=== PATIENT | female | born 1975 | race Caucasian/White ===

== ENCOUNTER 2018-08-02 09:59 | Emergency (ER) | payer BC, SELFPAY ==
[2018-08-02 10:02] VITALS: BP 144/77; PULSE 78; RESP 16; TEMP 36.3; O2SAT 96
--- NOTE | 2018-08-02 10:17 | DI.RAD_ITS ---
SYMPTOM/DIAGNOSIS: LEFT FEMUR: There is no evidence of a fracture or dislocation. LEFT KNEE: There is no evidence of a fracture or dislocation or joint effusion. LEFT TIB-FIB: There is no evidence of a fracture or dislocation.
[2018-08-02] MEDS: Ibuprofen 600 MG TAB PO (10:25)
--- NOTE | 2018-08-02 11:24 | ED.GENADUL_ITS ---
Discharge Plan Disposition Patient Disposition: HOME Condition: Stable Discharge Details Chief Complaint: Orthopedic Clinical Impression: Contusion of knee, left, Abrasion, Contusion of hand, right Primary Care Provider: Jorge Rizvi ED Provider: Patria Steinberg Home Meds and New Rx's Prescriptions: Continue citalopram [Celexa] 20 MG tablet 40 mg PO HS RF: 0 montelukast [Singulair] 10 MG tablet 10 mg PO HS RF: 0 epinephrine [EpiPen 2-Serafin] 0.3 MG/0.3 ML auto-injector 0.3 mg IM ONCE RF: 0 fluticasone [Flonase Allergy Relief] 9.9 ML spray,suspension 9.9 ml NS PRN PRNRF: 0 pantoprazole [Protonix] 40 MG tablet,delayed release (DR/EC) 40 mg PO BID RF: 0 fexofenadine [Ruth Allergy] 180 mg Tablet 180 mg PO HS RF: 0 Discharge Instructions Instructions: Contusion in Adults (ED), Abrasion (ED) Additional Instructions: Rest, ice, elevate left lower extremity is much as possible. Alternate Tylenol and Motrin as needed and directed for pain. Follow-up with your primary care doctor in 1 week for reevaluation as needed. Return to the emergency department any worsening or new concerning symptoms. Discharge Data Discharge Date/Time-TO BE ENTERED AT DEPARTURE: 08/02/18 11:34 Discharge Physician: Patria Steinberg Medical Decision Making 43-year-old female who presents with left knee pain after fall directly onto her knee while walking in dry [employer] this morning. Also fell onto her right hand but denies pain in this area and there is no deformity. Blood pressure slightly hypertensive but otherwise vitals within normal limits. Superficial left knee abrasion and tenderness to palpation of left anterior knee and left proximal tibia but no deformity noted. I do not see an indication for right hand x-ray patient was offered and she declines. She is complaining of radiation of pain from left knee up to left thigh left lower leg , will obtain left femur, left knee and left tib-fib x-rays. Will also check a urine test and give a dose of Motrin. 1115 -- X-rays negative. test negative. Patient offered Srinivasa wrap but declines. Patient instructed on rest, ice, elevate. As there is no history of twisting injury and no ligamentous instability on exam, doubt ligament injury. Patient was informed of symptoms persist or worsen, follow-up with a primary care doctor for referral to orthopedics for further evaluation. Instructed to return here with any concerns. HPI General Mode of arrival: ambulatory . Date/Time Provider Initiated Documentation: 08/02/18 10:08 . Limitations to Documentation: no limitations . Information obtained by: patient . HPI Narrative: Patient is a 43-year-old female presents with left knee pain after fall directly onto her left knee while walking at a [employer] this morning. Patient states she tripped on the step and fell directly onto the cement on her left knee. She is complaining of some radiation of pain up to the thigh and down to the lower leg. She has not taken anything for pain. She also states she hit her right hand but denies any pain in this area. She denies any other injuries. Past medical history: Anxiety, depression, GERD, obesity, PCOS Surgical history: Cholecystectomy, breast reduction Social history: Occasional alcohol, denies tobacco or drugs Medications: Celexa, Ruth, Singulair, Protonix Allergies: NKDA LMP: 5 weeks ago Related Data Home Medications Medication Instructions Recorded Confirmed citalopram [Celexa] 40 mg PO HS tab-cap NS 12/01/14 08/02/18 epinephrine [EpiPen 2-Serafin] 0.3 mg IM ONCE NS 12/01/14 08/02/18 fluticasone [Flonase Allergy 9.9 ml NS PRN PRN NS 12/01/14 08/02/18 Relief] montelukast [Singulair] 10 mg PO HS tab-cap NS 12/01/14 08/02/18 pantoprazole [Protonix] 40 mg PO BID tab-cap 08/18/17 08/02/18 fexofenadine [Ruth Allergy] 180 mg PO HS 08/02/18 08/02/18 Allergies Allergy/AdvReac Type Severity Reaction Status Date / Time birch Allergy Severe Birch Unverified 08/02/18 10:05 pollen/ raw fruit nectarines, General Stated Complaint: Orthopedic LISSA: 4 Review of Systems Review of Systems All systems reviewed & are unremarkable except as noted in HPI and below PFSH Medical History Anxiety and depression Breast lump or mass Cholelithiasis Fibrocystic breast GERD (gastroesophageal reflux disease) Hx gestational diabetes Obesity (BMI 30-39.9) PCOS Polycystic ovary syndrome Social History Smoking/Tobacco Use Status: Never Surgical History EGD - MAC (09/14/17) Exam Const General: cooperative, healthy appearing and no acute distress HENMT Head: normal to inspection Mouth: oral mucosae normal Eyes General: appearance normal, both eyes and all related structures Neck Neck: normal visual inspection Resp Effort & Inspection: normal respiratory effort and able to speak in complete sentences Cardio Rate: regular rate Skin General skin exam: no rashes or lesions noted Neuro General: alert, awake and oriented x3 Motor: muscle tone normal throughout Extrem Right upper extremity: wrist (No right snuffbox tenderness) and hand (Minimal tenderness to palpation and mild edema of right palmar hand near the thenar eminence. No deformity.) Left lower extremity: hip/thigh (Tenderness to palpation of left distal anterior thigh. No ecchymosis, edema or erythema. Normal to inspection and no tenderness to palpation of left hip. No pain in left hip with range of motion, internal or external rotation), knee (Superficial abrasion and tenderness to palpation of left anterior knee. No deformity noted. Negative anterior and posterior drawer test. No pain with valgus or varus stress. Negative Yusuf test. ), lower leg (Tenderness palpation and superficial abrasion noted to left anterior proximal tibia near tibial plateau. No deformity noted.), ankle (No tenderness palpation or deformity) and foot (No tenderness to palpation or deformity. Left DP/PT pulses intact) Psych Appearance: grossly normal Affect: normal affect Course Vital Signs Temperature 97.3 F L 08/02/18 10:02 Pulse 78 08/02/18 10:02 Respiratory Rate 16 08/02/18 10:02 Blood Pressure 144/77 H 08/02/18 10:02 Pulse Oximetry 96 08/02/18 10:02 Temperature 97.3 F L 08/02/18 10:02 Temperature Source Temporal Artery Scan 08/02/18 10:02 Pulse 78 08/02/18 10:02 Respiratory Rate 16 08/02/18 10:02 Respiratory Effort Non-Labored 08/02/18 10:04 Blood Pressure 144/77 H 08/02/18 10:02 Blood Pressure Position Sitting 08/02/18 10:02 Pulse Oximetry 96 08/02/18 10:02 Oxygen Delivery Method Room Air 08/02/18 10:02 Oxygen Flow Rate 0 08/02/18 10:02 Pain Level 8 08/02/18 10:25 Lab/Test Results Lab/Test Results: POC- Test(urine) Negative
== END 2018-08-02 11:34 | disposition home or self-care (01) ==
PROVIDERS: Emergency Provider Physician Assistant; PCP Physician Assistant Medical
DX: S80.02XA Contusion of left knee, initial encounter (principal); S60.221A Contusion of right hand, initial encounter; W01.0XXA Fall on same level from slipping, tripping and stumbling without subsequent striking against object, initial encounter
CPT/HCPCS: 73552; 73562; 99284; 73590

== ENCOUNTER 2018-09-20 01:18 | Outpatient (CLI) | payer BC, SELFPAY ==
--- NOTE | 2018-09-20 15:41 | DI.MRI_ITS ---
SYMPTOM/DIAGNOSIS: LEFT KNEE PAIN M25.562, ? LMENISCAL AND LEG INJURY MR LEFT KNEE: There is no evidence of a joint effusion. The extensor mechanism of the knee is intact. There is moderate chondromalacia along the medial joint compartment with mild periarticular osteophyte formation. The medial meniscus is unremarkable. The lateral meniscus is unremarkable. Medial capsule and supporting structures are unremarkable. The lateral capsule and supporting structures are unremarkable. The anterior cruciate ligament is intact. The posterior cruciate ligament is intact. No abnormality involving the musculature is apparent. Note is made of a minimal Newsome's cyst. There is moderate subcutaneous edema anteriorly without a discrete collection. SUMMARY: Mild medial degenerative changes are demonstrated as described above. There is a minimal Newsome's lcyst. Moderate anterior subcutaneous edema is noted without a discrete collection. There is no significant internal derangement demonstrated in this patient.
--- NOTE | 2018-09-20 16:32 | DI.VRAD_ITS ---
EXAM: MR Left Lower Extremity Without Contrast, Knee EXAM DATE/TIME: 09/20/2018 3:37 PM CLINICAL HISTORY: 43 years old, female; Pain; Knee; Left; Patient HX: Lt knee pain, ? meniscal and leg TECHNIQUE: MR of the Left Lower extremity without intravenous contrast. Exam focused on the knee. COMPARISON: CR XR knee LT 3V AP,lat,tab 08/02/2018 10:38 AM FINDINGS: BONES/JOINTS/CARTILAGE: Patellofemoral compartment: Joint fluid is within physiologic limits. Femorotibial compartments: There is moderate chondromalacia along the medial compartment, with very mild periarticular osteophyte formation. Extensor mechanism: Unremarkable. No evidence of tear. Medial meniscus: Unremarkable. No evidence of tear. Lateral meniscus: Unremarkable. No evidence of tear. Medial capsule/supporting structures: Unremarkable. No evidence of tear. Lateral capsule/supporting structures: Unremarkable. No evidence of tear. Anterior cruciate ligament: Unremarkable. No evidence of tear. Posterior cruciate ligament: Unremarkable. No evidence of tear. Musculature: Unremarkable. Soft tissues: There is a minimal Newsome's cyst. There is moderate subcutaneous edema anteriorly without discrete collection. IMPRESSION: 1. Mild medial degenerative changes. 2. Minimal Newsome's cyst. 3. Moderate anterior subcutaneous edema without discrete collection. 4. No significant internal derangement. Dictated and Authenticated by: Bryant Younger MD. Ordering:NATHALY Dye MD
== END 2018-09-20 01:38 ==
PROVIDERS: PCP Physician Assistant Medical; Visit Provider Specialist/Technologist Athletic Trainer
DX: M25.562 Pain in left knee (principal); M71.22 Synovial cyst of popliteal space [Baker], left knee; M17.12 Unilateral primary osteoarthritis, left knee; R60.0 Localized edema
CPT/HCPCS: 73721

== ENCOUNTER 2019-01-09 00:39 | Outpatient (CLI) | payer BC, SELFPAY ==
--- NOTE | 2019-01-09 13:51 | DI.COMBO_ITS ---
SYMPTOM/DIAGNOSIS:: HEALTH SCREENING, Z13.9, US TO FOLLOW UP BREAST ABNORMALITY ON MAMMO MAMMOGRAMS WITH RIGHT BREAST ADDITIONAL VIEWS AND RIGHT BREAST ULTRASOUND: Mammograms were interpreted according to the usual protocol including computer analysis with CAD system, tomosynthesis and C view imaging. Comparison examinations are 2016 and 2017. The 2017 mammogram shows findings of prior bilateral breast reduction. On the current examination breast density is A. There is a focal asymmetry in the lower inner quadrant of the right breast with associated calcifications. This corresponds to an area on the 2017 post reduction images where there was an area of fat necrosis. A well circumscribed nodule in the upper outer of the left breast is again seen and may represent an intraparenchymal lymph node. No suspicious microcalcifications or masses are seen. The skin and axilla are unremarkable. Additional views of the right breast again show breast asymmetry with internal calcification in the lower inner quadrant of the right breast. A right breast ultrasound was performed. As directed by the patient, the palpable abnormality is located at the 7 o'clock position. This corresponds to a well circumscribed, ovoid, anechoic lesion measuring 0.7 cm. This is consistent with a cyst. There is a hyperechoic region at the 5 o'clock position of the right breast which appears to correspond to the breast asymmetry. No internal blood flow is seen. IMPRESSION: 1. 7 mm. cyst in the subcutaneous tissues of the right breast. This corresponds to the palpable abnormality. 2. Focal asymmetry in the lower inner quadrant of the right breast with associated microcalcifications. This corresponds to an area previously seen which showed fat necrosis on her post breast reduction images. This may reflect progression of the fat necrosis. A 3 month follow up right mammogram is requested for re-evaluation. MQSA ASSESSMENT OF FINDINGS: Probably benign. Three month follow up recommended. Category 3. BI-RADS category B. There are scattered areas of fibroglandular density. The findings were discussed with the patient on the date of the examination.
== END 2019-01-09 00:59 ==
PROVIDERS: PCP Physician Assistant Medical; Visit Provider Physician Assistant Medical
DX: Z12.31 Encounter for screening mammogram for malignant neoplasm of breast (principal); R92.8 Other abnormal and inconclusive findings on diagnostic imaging of breast; N60.01 Solitary cyst of right breast; N64.1 Fat necrosis of breast; R92.0 Mammographic microcalcification found on diagnostic imaging of breast
CPT/HCPCS: 76642; 77063; 77067

== ENCOUNTER 2019-04-16 01:02 | Outpatient (CLI) | payer BC, SELFPAY ==
--- NOTE | 2019-04-16 10:32 | DI.COMBO_ITS ---
SYMPTOM/DIAGNOSIS: 6 MO F/U, F/U ABNL MAMMO, R92.8 RIGHT MAMMOGRAM AND RIGHT BREAST ULTRASOUND: Mammograms were interpreted according to the usual protocol including computer analysis with CAD system, tomosynthesis and C view imaging. Breast density, Category A. No suspicious masses or microcalcifications are seen. The small nodular density with internal calcifications in the lower inner quadrant of the right breast appears stable in size. No suspicious masses or microcalcifications are seen mammographically. A right breast ultrasound was performed. The heterogeneous area in the 5 o'clock position of the right breast now measures 0.5 by 0.7 by 0.9 cm. It shows slight decrease in size compared to the prior examination. No internal blood flow is seen. Echogenic foci are seen internally consistent with the calcifications. IMPRESSION: Slight decrease in size of right breast nodule. A 6 month follow up right mammogram and ultrasound is requested for re-evaluation. Category 3. MQSA ASSESSMENT OF FINDINGS: Probably benign. Six month follow-up recommended. Category 3. Patient will receive a letter notifying them of these results. BI-RAD category A. The breasts are almost entirely fatty. The findings were discussed with the patient on the date of the examination.
== END 2019-04-16 01:22 ==
PROVIDERS: PCP Physician Assistant Medical; Visit Provider Physician Assistant Medical
DX: Z12.31 Encounter for screening mammogram for malignant neoplasm of breast (principal); R92.8 Other abnormal and inconclusive findings on diagnostic imaging of breast; N63.14 Unspecified lump in the right breast, lower inner quadrant
CPT/HCPCS: 76642; 77061; 77065; G0279

== ENCOUNTER 2019-07-22 22:00 | Outpatient (REF) | payer BC, SELFPAY ==
[2019-07-22 22:03] LABS: Abs Immature Grans 0.02 k/cumm (0.0-0.09); Absolute Basophil Count 0.02 k/cumm (0.0-0.2); Absolute Eosinophil Count 0.13 k/cumm (0.0-0.7); Absolute Lymphocyte Count 1.98 k/cumm (1.2-3.4); Absolute Monocyte Count 0.43 k/cumm (0.11-0.7); Absolute Neutrophil Count 3.11 k/cumm (1.2-6.7); Basophils % 0.4; Eosinophils % 2.3; HCT 42.5 % (36.0-46.0); HGB 13.8 g/dL (12.0-15.5); Immature Grans % 0.4; Lymphocytes % 34.8; Mean Corp. HGB Concentration 32.5 g/dL (32.0-36.0); Mean Corpuscular Hemoglobin 29.5 pg (27.0-33.0); Mean Corpuscular Volume 90.8 fL (80-95); Mean Platelet Volume 10.6 fL (8.0-11.0); Monocytes % 7.6; Neutrophils % 54.5; Platelet Count 306 x1000/uL (130-400); RBC 4.68 m/cumm (4.00-5.20); RBC Distribution Width 13.7 % (11.7-14.6); White Blood Cell Count 5.69 k/cumm (4.4-10.8)
[2019-07-22 23:11] LABS: ALT 39 U/L (14-59); AST 25 U/L (15-37); Albumin 3.6 g/dL (3.4-5.0); Alkaline Phosphatase 68 U/L (46-116); Anion Gap 10.1 mmol/L (3-11); BUN 11 mg/dL (7-18); Bilirubin, Total 0.4 mg/dL (0.2-1.0); C-Reactive Protein 0.82 mg/dL (0.0-0.3); CO2 24.9 mmol/L (21.0-32.0); CREATININE 0.66 mg/dL (0.55-1.02); Calcium 8.8 mg/dL (8.5-10.1); Chloride 105 mmol/L (98-107); Glucose 104 mg/dL (70-100); Potassium 4.8 mmol/L (3.5-5.1); Sodium 140 mmol/L (136-145); TSH (W/Ref FT4) 1.49 uIU/mL (0.36-3.74); Total Protein 7.1 g/dL (6.4-8.2)
[2019-07-24 10:42] LABS: Lyme Ab w Rflx to Lyme Confirm Negative
[2019-07-24 11:43] LABS: Rheumatoid Factor <8 IU/mL (<12.5)
[2019-07-24 14:42] LABS: ANA Interpretation Negative (NEGAT)
[2019-07-24 21:41] LABS: Anaplasma phagocytophilum Negative (Negative); B. miyamotoi PCR Negative (Negative); Babesia divergens/MO-1 Negative (Negative); Babesia duncani Negative (Negative); Babesia microti Negative (Negative); Ehrlichia chaffeensis Negative (Negative); Ehrlichia ewingii/canis Negative (Negative); Ehrlichia muris eauclairensis Negative (Negative)
== END 2019-07-22 22:20 ==
LOC: NCHCN 22:00
PROVIDERS: PCP Physician Assistant Medical; Visit Provider Physician Assistant Medical
DX: R53.83 Other fatigue (principal); M12.849 Other specific arthropathies, not elsewhere classified, unspecified hand
CPT/HCPCS: 80053; 82306; 87798; 84443; 85025; 86038; 86140; 86431; 86618

== ENCOUNTER 2019-10-22 01:02 | Outpatient (CLI) | payer BC, SELFPAY ==
--- NOTE | 2019-10-22 09:18 | DI.MAMMO_ITS ---
EXAM: US BREAST RT COMPLETE CLINICAL HISTORY: ABNORMAL MAMMO R92.8 TECHNIQUE: Ultrasound performed using standard protocol. COMPARISON: No exams were available for comparison FINDINGS: Right breast mammogram and right breast ultrasound are interpreted in conjunction. Prior examination s of April 2019 showed a small 5 o'clock nodule in the right breast, this is unchanged on the current mammogram and again shows a couple of small associated calcifications. Ultrasound showed approximatel y 9 millimeter in greatest diameter region of heterogeneous increased echogenicity, this is less prom inent on the current study. No new mass or clumped microcalcification seen ultrasonographically. IMPRESSION: Stable or decreased prominence of small indeterminate right breast nodule in 5 o'clock position. An a dditional follow-up mammogram and ultrasound are recommended in 6 months, mammography should be a vladislav ateral mammogram to resume routine screening of the contralateral breast. Category 3 , breast density category B
== END 2019-10-22 01:22 ==
PROVIDERS: PCP Physician Assistant Medical; Visit Provider Physician Assistant Medical
DX: Z12.31 Encounter for screening mammogram for malignant neoplasm of breast (principal); R92.8 Other abnormal and inconclusive findings on diagnostic imaging of breast; N63.14 Unspecified lump in the right breast, lower inner quadrant
CPT/HCPCS: 76642; 77061; 77065; G0279

== ENCOUNTER 2021-05-05 11:06 | Outpatient (REF) | payer BC, SELFPAY ==
--- NOTE | 2021-05-05 09:30 | PAPFT_PTH ---
PATIENT: France Villalobos LOC: [facility] U#:[id number] AGE/SX: 45/F ROOM: RE05/05/[address]: Jorge Rizvi : 1975 BED: DIS: 05/05/2021 SPEC #: [id number] RECD: 05/06/21 12:53 STATUS: ANDREZ RERajeev #: [id number] NICK: 05/05/21 09:[address]: Jorge Rizvi DEPT: [facility] Cytology RECD BY: Sis Zavaleta Tissues: 1 - CX/ENDOCX FOR PAP SMEARS Procedures: PAP THIN PREP/UVM Screening HPV DNA PROBE Comments: [id number]
[2021-05-05 20:34] LABS: ALT 42 U/L (14-59); AST 31 U/L (15-37); Albumin 3.8 g/dL (3.4-5.0); Alkaline Phosphatase 65 U/L (46-116); BUN 8 mg/dL (7-18); Bilirubin, Total 0.5 mg/dL (0.2-1.0); CREATININE 0.6 mg/dL (0.55-1.02); Calcium 9.2 mg/dL (8.5-10.1); Calculated LDL 127 mg/dL (<100); Chloride 103 mmol/L (98-107); Cholesterol 187 mg/dL (<200); Glucose 100 mg/dL (74-106); HDL Cholesterol 35 mg/dL (40-60); Potassium 4.4 mmol/L (3.5-5.1); Sodium 140 mmol/L (136-145); Total Protein 7.6 g/dL (6.4-8.2); Triglyceride 128 mg/dL (<150)
== END 2021-05-05 11:07 | disposition home or self-care (01) ==
LOC: NCHCN 11:06
PROVIDERS: PCP Physician Assistant Medical; Visit Provider Physician Assistant Medical
DX: Z00.00 Encounter for general adult medical examination without abnormal findings (principal); Z86.32 Personal history of gestational diabetes; Z13.220 Encounter for screening for lipoid disorders; Z12.4 Encounter for screening for malignant neoplasm of cervix; Z11.51 Encounter for screening for human papillomavirus (HPV)
CPT/HCPCS: 80053; 80061; 88142; 83036; 87624

== ENCOUNTER 2021-05-11 01:41 | Outpatient (CLI) | payer BC, SELFPAY ==
--- NOTE | 2021-05-11 | DI.MAMMO_ITS ---
Exam(s) MAMMO SCREENING EXAM: MAMMO SCREENING CLINICAL HISTORY: SCREENING, HEALTH SCREENING,Z13.9 TECHNIQUE: Mammograms were interpreted according to the usual protocol including computer analysis w [employer] CAD system, tomosynthesis and C-view imaging. COMPARISON: 2015 through 2019 FINDINGS: The breasts are composed of mainly fatty density , Breast Density category A. No suspicious masses or suspicious microcalcifications are seen. No skin thickening or abnormal axillary lymph nodes are seen. There has been no significant change from prior exams. IMPRESSION: BI-RADS Category 1, Negative mammogram Yearly screening mammography is recommended. Breast Density - Category A, fatty density. A negative radiographic report should not delay biopsy if a dominant or clinically suspicious mass is present. Up to ten percent of cancers are not identified on mammography. A negative report may reinforce clinical impression. Adenosis and dense breasts may obscure an underlying neoplasm. False positive reports average 6 to 10%. Patient will receive a letter notifying them of these results.
== END 2021-05-11 02:01 ==
PROVIDERS: PCP Physician Assistant Medical; Visit Provider Physician Assistant Medical
DX: Z12.31 Encounter for screening mammogram for malignant neoplasm of breast (principal)
CPT/HCPCS: 77063; 77067

== ENCOUNTER 2021-10-11 01:53 | Outpatient (CLI) | payer BC, SELFPAY ==
--- NOTE | 2021-10-11 | DI.RAD_ITS ---
Exam(s) XR ANKLE LT COMPLETE EXAM: XR ANKLE LT COMPLETE CLINICAL HISTORY: LT ANKLE PAIN, M25.572 TECHNIQUE: 2D digital imaging was performed. COMPARISON: No exams were available for comparison FINDINGS: BONES: No acute fracture is present. No bony destructive lesion is seen. Small plantar calcaneal spu r. JOINTS:The ankle mortise is normally aligned. Mild degenerative changes talonavicular joint. SOFT TISSUE: Normal. IMPRESSION: Mild degenerative changes and small heel spur. DATA REPOSITORY: RADIATION DOSE DELIVERED:
== END 2021-10-11 02:13 ==
PROVIDERS: PCP Physician Assistant Medical; Visit Provider Physician Assistant Medical
DX: M25.572 Pain in left ankle and joints of left foot (principal); M77.52 Other enthesopathy of left foot and ankle; M19.072 Primary osteoarthritis, left ankle and foot
CPT/HCPCS: 73610

== ENCOUNTER 2021-12-08 02:11 | Outpatient (CLI) | payer BC, SELFPAY ==
[2021-12-08 09:39] LABS: Source Nasal/Nares
[2021-12-08 14:08] LABS: COVID-19 PCR Negative (Negative)
== END 2021-12-08 02:12 | disposition home or self-care (01) ==
LOC: LBO 02:11
PROVIDERS: PCP Physician Assistant Medical; Visit Provider Surgery
DX: Z20.822 Contact with and (suspected) exposure to COVID-19 (principal)
CPT/HCPCS: 87635

== ENCOUNTER 2021-12-10 11:57 | Day surgery (SDC) | payer BC, SELFPAY ==
--- NOTE | 2021-12-09 20:46 | W.COLOREPORT ---
Colonoscopy Report Date of procedure: 12/10/21 Pre-op diagnosis general: CRC screen Post-op diagnosis procedure note: other (Sigmoid diverticula and colon polyp) Surgeon: Carola Lopez Anesthesia Type: General:No Airway Complications: None Disposition: same day Prep: Miralax/Dulcolax Retraction Time: 11 minutes Procedure Description: After informed consent was obtained the patient was taken to the procedure room and placed in a left decubitous position. Monitors were applied and a time out was done. The patients name, date of , procedure, allergies to medications and metal in their body was reviewed. The patient was then sedated. Once sedated and comfortable a rectal exam was done. External exam was normal. Internal exam revealed a normal sphincter tone and no palpable masses. The scope was then introduced and retrofelexed. no internal hemorrhoids were identified. The scope was then advanced to the cecum without difficulty. The TI and appendiceal orifice were identified. The prep was bps 3 in transverse sigmoid and rectum. Bps 2 in cecum and right colon. scope was then slowly retracted over 11 minutes back into the rectum. Polyps were removed at 30 cm she has a 0.75 cm pedunculated polyp. This is removed with a cold snare. All specimen is retrieved and no bleeding is noted. She does have very few, small, scattered diverticula in the sigmoid colon. There is no signs of bleeding or infection. The scope was removed and the patient was woken up and taken back to Same day surgery in stable condition. At 30 cm she has a 0.75 mm pedunculated polyp. This is removed with a cold snare. All specimen is retrieved and no bleeding is noted. No hemorrhoid The patient tolerated the procedure well and there were no immediate complications. Follow up: The patient should follow up in 5-7, path pending, unless they develop changes in bowel habits or other new gastrointestinal complaints.
--- NOTE | 2021-12-09 20:47 | PDOC.DSDIS_ITS ---
Discharge Plan Disposition Patient Disposition: HOME Condition: Good Discharge Details Reason For Visit: colon cancer screen Attending Provider: Carola Lopez Primary Care Provider: Jorge Rizvi Home Meds and New Rx's Prescriptions: No Action Zyrtec 10 mg capsule 10 mg PO DAILY PRN0RF levomefolate calcium [L-Methylfolate] 7.5 mg tablet 7.5 mg PO DAILY 0RF epinephrine [EpiPen 2-Serafin] 0.3 MG/0.3 ML auto-injector 0.3 mg IM ONCE 0RF Label Comments: pt. states she has never used fluticasone propionate [Flonase Allergy Relief] 9.9 ML spray,suspension 9.9 ml NS PRN PRN0RF Rx Instructions: does not use in winter triamcinolone acetonide 0.5 % cream 1 applic topical DAILY 0RF cyanocobalamin (vitamin B-12) 1,000 mcg capsule 1,000 mcg PO DAILY 0RF escitalopram oxalate 20 mg tablet 20 mg PO DAILY 0RF Discharge Instructions Additional Instructions: DSU Colonoscopy Post- Op Instructions Instructions for Everyone who is given Anesthesia: For your safety, please do the following for the next twenty-four (24) hours: *Do Not operate a motor vehicle (car, truck, motorcycle, etc.) *Do Not drink alcoholic beverages or use any recreational drugs for the first 24 hours or while taking pain medications. The medications in your body may have a reaction that can be dangerous. *Do Not make any important decisions or sign any important papers. Findings: Minor diverticula Small polyp -No aspirin or NSAIDs for 24 nhrs. Follow up: My office will send a letter with the results of the polyp in 2 to 3 weeks time. This will tell us what type of polyp it is and when we want to repeat the colonoscopy again, probably 5 years time. 1. No lifting over 20 pounds or strenuous activity for the first 24 hours after your procedure. After 24 hours there are no restrictions on your activity but you may feel fatigued for a few days. 2. After you arrive home you may have a light meal and return to your normal diet as you can tolerate it without feeling sick to your stomach. 3. You may have a bloated, gaseous feeling in your belly (abdomen) after a colonoscopy. Passing gas and belching will help. Walking or lying down on your left side with your knees flexed may relieve the discomfort. Call the office at [phone] (Office) or [phone] (Hospital) right away if you notice any of the following: a.Vomiting of blood or ?coffee ground stools?. b.Rectal bleeding 1Tbsp, blood clots or continuous bleeding. c.Severe belly (abdominal) pain. d.A hard distended belly (abdomen) and an inability to pass gas. 4. Please don?t expect to have a normal BM (bowel movement) for 2-3 days after your procedure. 5. If there are questions regarding the findings of your procedure, please contact your doctor 6. If you are unable to contact your doctor with a problem, contact the hospital at [phone]. 7. Continue all your regular medications unless directed otherwise. I understand the above instructions and have no questions. Signature of Patient or Adult Escort Name of Responsible Adult Escort Signature of Nurse Date/Time Activity:: see above Diet:: see above Discharge Orders Discharge Orders: Discharge Order (Routine); Ordered 12/09/21 Ordered By: Carola Lopez
[2021-12-10 12:20] VITALS: BP 124/82; PULSE 78; RESP 18; TEMP 36.4; O2SAT 97
--- NOTE | 2021-12-10 12:22 | ANES.PREOP_ITS ---
General Info Date of Service Date Performed: 12/10/21 Height: 5 ft 7 in Weight: 127.119 kg Body Mass Index (BMI): 43.9 Surgical Procedure: Operation Date: 12/10/21 12:35 Proposed Procedure Side Surgeon lissy Lopez, DO Meds Allergies and Home Medications Allergies Allergy/AdvReac Type Severity Reaction Status Date / Time birch Allergy Severe Itching Verified 12/10/21 12:17 house dust Allergy Mild Verified 12/10/21 12:17 pollen extracts Allergy Mild Verified 12/10/21 12:17 nectarines Allergy Severe critical Uncoded 12/09/21 11:46 is noted in referral Home Medication Medication Instructions Recorded EpiPen 2-Serafin 0.3 mg/0.3 mL 0.3 mg IM ONCE NS 12/01/14 injection, auto-injector (epinephrine) Flonase Allergy Relief 50 9.9 ml NS PRN PRN NS 12/01/14 mcg/actuation nasal spray,suspension (fluticasone propionate) cyanocobalamin (vitamin B-12) 1,000 mcg PO DAILY 05/24/21 1,000 mcg capsule escitalopram oxalate 20 mg tablet 20 mg PO DAILY 05/24/21 triamcinolone acetonide 0.5 % 1 applic TOPICAL DAILY 05/24/21 topical cream cetirizine 10 mg capsule (Zyrtec) 10 mg PO DAILY PRN 11/18/21 levomefolate calcium 7.5 mg tablet 7.5 mg PO DAILY 11/18/21 (L-Methylfolate) Current Visit Medications: Current Medications Generic Name Dose Route Start Last Admin Trade Name Freq PRN Reason Stop Dose Admin Hyoscyamine Sulfate 0.125 mg 12/09/21 20:44 Hyoscyamine 0.125 Mg Sl/Oral/Chew SL DIRECTED PRN Ringer's Solution 1,000 mls @ 80 mls/hr 12/10/21 06:00 IV 12/30/21 23:59 INFUSION [facility] IV Miscellaneous Supplies 1 each 12/10/21 06:00 Iv Access IV 12/30/21 23:59 DIRECTED [facility] Ondansetron HCl 4 mg 12/09/21 20:44 Ondansetron 4 Mg/2 Ml Vial IVP Q4H PRN PRN Nausea / Vomiting Sodium Chloride 0 ml 12/10/21 06:00 Normal Saline Flush 10 Ml Syr IV 12/30/21 23:59 PRN PRN Sodium Chloride 0 ml 12/10/21 06:00 Normal Saline 10 Ml Vial IJ 12/30/21 23:59 DIRECTED PRN Sterile Water 0 ml 12/10/21 06:00 Water,Injection,Sterile 10 Ml Vial IJ 12/30/21 23:59 DIRECTED PRN PFSH Active Problems Active Problems: Problem Status Onset Code GERD (gastroesophageal reflux disease) Obesity (BMI 30-39.9) Screening for colon cancer Z12.11 Generalized anxiety disorder F41.1 Medical History Medical History Abnormal mammogram Anxiety and depression Breast lump or mass Cholelithiasis Fibrocystic breast Hx gestational diabetes Knee pain, left PCOS Snoring Unresolved grief Surgical History Surgical History (Updated 12/10/21 @ 12:16 by Henry Perez) EGD - MAC (09/14/17) Hx laparoscopic cholecystectomy Tobacco Smoking/Tobacco Use Status: Never Alcohol Alcohol Intake: current Alcohol intake frequency: a few times a week Alcohol type: wine and hard liquor Substance Use Substance use: Never Substance use type: does not use Vital Signs and Lab Results Lab Results Blood Type / Crossmatch: No Data to Display Complete Blood Count: No Data to Display Complete Metabolic Panel: No Data to Display Liver Function Panel: No Data to Display Coagulation Panel: No Data to Display Cardiac Panel: No Data to Display Arterial Blood Gas: No Data to Display Venous Blood Gas: No Data to Display Pancreas Panel: No Data to Display Thyroid Panel: No Data to Display Infectious Disease: Coronavirus (COVID-19)(PCR) Negative (Negative) 12/08/21 08:26 12/08/21 Coronavirus 2019 Source Nasal/Nares 12/08/21 08:26 12/08/21 Blood Cultures: No Data to Display Toxicology Panel: No Data to Display Panel: No Data to Display Anesthesia Assessment and Plan Anesthesia History Personal History: No History of Anesthesia Complications Family History: No Family History of Anesthesia Complications Exercise Tolerance Exercise Tolerance: Metabolic Equivalents>4 Pertinent Negatives Pertinent Negatives: No Symptoms of GERD Cardiac & Pulmonary Exam Cardiac Exam: Normal S1/S2 Heart Sounds Pulmonary Exam: Clear Bilateral Breath Sounds Implantable Cardiac Device Does patient have a Pacemaker or an ICD?: No Airway Exam Known Difficult Airway: No Mallampati Class: 2 Mouth Opening: Normal (> 3cm) Thyromental Distance: Greater than 3 cm Neck Range of Motion: Full ROM Neck Circumference: Normal Teeth Condition: Normal Dentition ASA Classification ASA Score: ASA 3 Emergency Case?: No NPO Status NPO Status: NPO Clears >2 hours, Solids >8 hours Status Status: Negative HCG Anesthesia Plan Resuscitation Status: Full Code Anesthesia Technique: General Anesthesia Airway Planned: Natural Airway Monitors Used: Standard Monitors
[2021-12-10 12:29] VITALS: BMI 43.9
[2021-12-10] MEDS: Lactated Ringers 1,000 ML 80 ML IV (12:37)
--- NOTE | 2021-12-10 13:04 | BOWEL_PTH ---
PATIENT: France Villalobos LOC: [facility] U#:[id number] AGE/SX: 46/F ROOM: RE12/10/[address]: Carola Lopez : 1975 BED: DIS: 12/10/2021 SPEC #: [id number] RECD: 12/10/21 17:23 STATUS: ANDREZ RE #: [id number] NICK: 12/10/21 13:[address]: Carola Lopez DEPT: Surgical Specimen RECD BY: Sis Zavaleta ENTERED: 12/10/21 17:24 SP TYPE: Bowel OTHR DR: Jorge Rizvi Tissues: 1 - BIOPSY BOWEL Procedures: GROSS AND MICRO LEVEL 4 Comments: [id number]
[2021-12-10 13:13] VITALS: BP 99/66; PULSE 82; RESP 18; TEMP 36.5; O2SAT 94
--- NOTE | 2021-12-10 13:15 | W.ANESPOSTOP ---
Postoperative Evaluation Date, Time and Location Date Performed: 12/10/21 Time Performed: 13:15 Patient Location: Day Surgery Unit Vital Signs Most Recent Imported Vital Signs: Most Recent Vital Signs Temp Pulse Resp BP Pulse Ox 36.4 C L 78 18 124/82 97 12/10/21 12:20 12/10/21 12:20 12/10/21 12:20 12/10/21 12:20 12/10/21 12:20 Pain Score Most Recent Pain Score: Most Recent Pain Score Pain Level 0 12/10/21 12:20 Assessment Mental Status: Awake (Alert & Oriented to Patient Baseline) Airway and Respiratory Function: Patent airway with normal (patient baseline) respiratory exam Cardiovascular Function: Hemodynamically Stable Hydration Status: Adequately Hydrated Nausea & Vomiting: No Nausea or Vomiting Pain: Pt. Denies Any Pain Peripheral Nerve Block: Patient did not receive a nerve block
[2021-12-10 13:45] VITALS: BP 110/74; PULSE 77; RESP 20; TEMP 37; O2SAT 94
== END 2021-12-10 14:06 | disposition home or self-care (01) ==
LOC: SUR 11:57
PROVIDERS: PCP Physician Assistant Medical; Visit Provider Surgery
PROC: 0DJD8ZZ Inspection of Lower Intestinal Tract, Via Natural or Artificial Opening Endoscopic (ICD-10-PCS; CPT 45378; principal; 2021-12-10 12:30)
DX: Z12.11 Encounter for screening for malignant neoplasm of colon (principal); K63.5 Polyp of colon; K57.30 Diverticulosis of large intestine without perforation or abscess without bleeding; K63.89 Other specified diseases of intestine
CPT/HCPCS: 45385; 88305; J2001

== ENCOUNTER 2022-08-02 15:21 | Outpatient (REF) | payer BC, SELFPAY ==
[2022-08-02 15:21] LABS: HCT 41.7 % (36.0-46.0); HGB 13.7 g/dL (11.2-15.7); MCH 30.3 pg (27.0-33.0); MCHC 32.9 % (32.0-36.0); MCV 92 fL (80-95); MPV 10.6 fL (8.0-11.0); Platelet Count 252 10^3/uL (130-400); RBC 4.52 10^6/uL (3.93-5.22); RDW 13.1 % (11.7-14.6); WBC 6.68 10^3/uL (4.4-10.8)
[2022-08-02 15:55] LABS: ALT 29 U/L (14-59); AST 28 U/L (15-37); Albumin 3.9 g/dL (3.4-5.0); Alkaline Phosphatase 65 U/L (46-116); Anion Gap 8.4 mmol/L (3-11); BUN 11 mg/dL (7-18); Bilirubin, Total 0.5 mg/dL (0.2-1.0); CO2 25.6 mmol/L (21.0-32.0); CREATININE 0.8 mg/dL (0.55-1.02); Calcium 8.9 mg/dL (8.5-10.1); Chloride 104 mmol/L (98-107); Glucose 91 mg/dL (74-106); Sodium 138 mmol/L (136-145); TSH (W/Ref FT4) 2.15 uIU/mL (0.36-3.74); Total Protein 7.8 g/dL (6.4-8.2)
[2022-08-02 16:08] LABS: Calculated LDL 117 mg/dL (<100); Cholesterol 182 mg/dL (<200); HDL Cholesterol 38 mg/dL (40-60); Triglyceride 136 mg/dL (<150)
== END 2022-08-02 15:22 | disposition home or self-care (01) ==
LOC: NCHCN 15:21
PROVIDERS: PCP Physician Assistant Medical; Visit Provider Physician Assistant Medical
DX: E66.9 Obesity, unspecified (principal)
CPT/HCPCS: 80053; 80061; 85027; 83036; 84443

== ENCOUNTER → 2022-08-23 02:15 | Outpatient (CLI) | payer BC, SELFPAY ==
--- NOTE | 2022-08-23 15:15 | DI.MAMMO_ITS ---
Exam(s) MAMMO SCREENING EXAM: MAMMO SCREENING CLINICAL HISTORY: SCREENING, Z12.31 TECHNIQUE: Bilateral full field digital CC and MLO mammographic images were obtained with 3D tomosyn thesis and utilizing computer aided detection (CAD). COMPARISON: Available for comparison. FINDINGS: Masses/Architectural Distortion: There is a new asymmetric density in the posterior upper left breast seen on the MLO view. The patient is status post bilateral breast reduction. Microcalcifications: No suspicious pleomorphic-type are seen. Skin Thickening/Nipple Retraction: None. IMPRESSION: 1. New asymmetric density in the posterior upper left breast on the MLO view. 2. This area should be further evaluated with spot compression view. Ultrasound may be indicated at that time. BI-RADS Category 0 - Assessment Incomplete: Need additional imaging evaluation Breast Density - Category B - Scattered areas of fibroglandular density Breast density category C or D implies that the patient has dense breast tissue. Dense breast tissue is very common and is not abnormal but dense breast tissue can make it harder to find cancer on a ma mmogram. Also, dense breast tissue may increase their breast cancer risk. This information about the result of the mammogram report was provided to the patient to raise their awareness. Use this report when you speak with the patient about their risks for breast cancer, which includes their family hist ory. At that time, you may recommend for more screening tests (Ultrasound or MRI) as they might be us eful based on their risk. A negative radiographic report should not delay biopsy if a dominant or clinically suspicious mass is present. Up to ten percent of cancers are not identified on mammography. A negative report may reinforce clinical impression. Adenosis and dense breasts may obscure an underlying neoplasm. False positive reports average 6 to 10%. Patient will receive a letter notifying them of these results.
== END ==
PROVIDERS: PCP Physician Assistant Medical; Visit Provider Physician Assistant Medical
DX: Z12.31 Encounter for screening mammogram for malignant neoplasm of breast (principal); R92.8 Other abnormal and inconclusive findings on diagnostic imaging of breast
CPT/HCPCS: 77063; 77067

== ENCOUNTER → 2022-09-14 02:07 | Outpatient (CLI) | payer BC, SELFPAY ==
--- NOTE | 2022-09-14 | DI.MAMMO_ITS ---
Exam(s) MG MAMMO SCREEN CALL BACK UNI US BREAST LT COMPLETE EXAM: MG MAMMO SCREEN CALL BACK UNI and U/S breast LT complete CLINICAL HISTORY: F/U MAMMO, NEW ASYMMETRIC DENSITY, R92.8. TECHNIQUE: Craniocaudal and mediolateral oblique Full Field Digital Mammography views of the left br east with Computer Aided Diagnosis followed by Tomosynthesis and left breast ultrasound. COMPARISON: Comparison is made with prior examinations. FINDINGS: Mammography/Tomosynthesis: Masses/Architectural Distortion: The area of concern is less prominent on the additional view. Microcalcifictions: No suspicious pleomorphic-type are seen. Skin Thickening/Nipple Retraction: None. Complete left breast US: Echotexture: Normal appearance of the glandular tissue. Shadowing: No suspicious foci. Cyst: None. Solid lesions: None seen. Ductal dilation: None. IMPRESSION: 1. No evidence of malignancy is noted. 2. A six-month follow-up left mammogram is recommended for re-evaluation. 3. The findings were discussed with the patient on the date of the examination. BI-RADS Category 3 - 6 month - Probably Benign Finding: Recommend follow-up imaging in 6 months Breast Density - Category B - Scattered areas of fibroglandular density Breast density Category C or D implies that the patient has dense breast tissue. Dense breast tissue can make it harder to find cancer on a mammogram. Dense breast tissue is also associated with an incr eased risk of breast cancer. This information about the result of the mammogram report was provided to the patient to raise their awareness. Use this report when you speak with the patient about their risks for breast cancer, which includes their family history. At that time, you may recommend additional screening tests (Ultrasoun d or MRI) as these tests may add significant information. A negative radiographic report should not delay biopsy if a dominant or clinically suspicious mass is present. Up to ten percent of cancers are not identified on mammography. A negative report may reinforce clinical impression. Adenosis and dense breasts may obscure an underlying neoplasm. False positive reports average 6 to 10%. Patient will receive a letter notifying them of these results.
== END ==
PROVIDERS: PCP Physician Assistant Medical; Visit Provider Physician Assistant Medical
DX: Z12.31 Encounter for screening mammogram for malignant neoplasm of breast (principal); R92.8 Other abnormal and inconclusive findings on diagnostic imaging of breast; N64.59 Other signs and symptoms in breast
CPT/HCPCS: 76642; 77063; 77067

== ENCOUNTER 2023-03-21 02:11 | Outpatient (CLI) | payer BC, SELFPAY ==
--- NOTE | 2023-03-21 09:54 | DI.MAMMO_ITS ---
Exam(s) MAMMO DIAGNOSTIC UNI EXAM: MAMMO DIAGNOSTIC UNI CLINICAL HISTORY: 6 MO F/U ABNL MAMMO, R92.8. TECHNIQUE: Craniocaudal and mediolateral oblique Full Field Digital Mammography views of the left br east with Computer Aided Diagnosis. COMPARISON: Comparison is made with prior examinations. FINDINGS: Mammography/Tomosynthesis: Masses/Architectural Distortion: None seen. Microcalcifictions: No suspicious pleomorphic-type are seen. Skin Thickening/Nipple Retraction: None. IMPRESSION: 1. No evidence of malignancy is noted. 2. Unless there is more urgent need, follow-up screening mammography is recommended, as per [place] [employer] guidelines. 3. The findings were discussed with the patient on the date of the examination. BI-RADS Category 1 - Negative Breast Density - Category B - Scattered areas of fibroglandular density Breast density Category C or D implies that the patient has dense breast tissue. Dense breast tissue can make it harder to find cancer on a mammogram. Dense breast tissue is also associated with an incr eased risk of breast cancer. This information about the result of the mammogram report was provided to the patient to raise their awareness. Use this report when you speak with the patient about their risks for breast cancer, which includes their family history. At that time, you may recommend additional screening tests (Ultrasoun d or MRI) as these tests may add significant information. A negative radiographic report should not delay biopsy if a dominant or clinically suspicious mass is present. Up to ten percent of cancers are not identified on mammography. A negative report may reinforce clinical impression. Adenosis and dense breasts may obscure an underlying neoplasm. False positive reports average 6 to 10%. Patient will receive a letter notifying them of these results.
== END 2023-03-21 02:31 ==
LOC: DI 02:12
PROVIDERS: PCP Physician Assistant Medical; Visit Provider Physician Assistant Medical
DX: Z12.31 Encounter for screening mammogram for malignant neoplasm of breast (principal); R92.8 Other abnormal and inconclusive findings on diagnostic imaging of breast
CPT/HCPCS: 77061; 77065; G0279

== ENCOUNTER 2024-08-21 19:52 | Outpatient (REF) | payer BC, SELFPAY ==
[2024-08-21 20:34] LABS: Calculated LDL 98 mg/dL (<100); Cholesterol 159 mg/dL (<200); HDL Cholesterol 40 mg/dL (40-60); Triglyceride 108 mg/dL (<150)
[2024-08-21 20:36] LABS: Hemoglobin A1C 5.6 % (<5.7)
== END 2024-08-21 19:53 | disposition home or self-care (01) ==
LOC: NCHCN 19:52
PROVIDERS: PCP Physician Assistant Medical; Visit Provider Physician Assistant Medical
DX: E66.9 Obesity, unspecified (principal); R73.03 Prediabetes
CPT/HCPCS: 80061; 83036

== ENCOUNTER 2025-01-01 17:35 | Outpatient (REF) | payer BC, SELFPAY ==
[2025-01-01 16:28] LABS: Abs Immature Grans 0.01 10^3/uL (0.0-0.06); Absolute Basophil Count 0.02 10^3/uL (0.0-0.2); Absolute Eosinophil Count 0.04 10^3/uL (0.0-0.7); Absolute Monocyte Count 0.39 10^3/uL (0.1-0.8); Absolute Neutrophil Count 2.99 10^3/uL (1.2-6.7); Basophils % 0.4 %; Eosinophils % 0.7 %; HGB 13.9 g/dL (11.2-15.7); Immature Grans % 0.2 %; Lymphocytes % 38.9 %; MCH 29.6 pg (27.0-33.0); MCHC 33.1 % (32.0-36.0); MCV 89 fL (80-95); MPV 10.8 fL (8.0-11.0); Monocytes % 6.9 %; Neutrophils % 52.9 %; Platelet Count 290 10^3/uL (130-400); RDW 13.8 % (11.7-14.6); RDW-SD 45.3 fL; WBC 5.65 10^3/uL (4.4-10.8)
[2025-01-01 16:57] LABS: Ferritin 30 ng/mL (8-252); Magnesium 2.1 mg/dL (1.8-2.4); TSH (W/Ref FT4) 1.91 uIU/mL (0.36-3.74)
== END 2025-01-01 17:36 | disposition home or self-care (01) ==
LOC: NCHCN 17:35
PROVIDERS: PCP Physician Assistant Medical; Visit Provider Physician Assistant Medical
DX: F41.9 Anxiety disorder, unspecified (principal); G25.81 Restless legs syndrome
CPT/HCPCS: 82728; 83735; 84443; 85025

== ENCOUNTER 2025-04-14 02:29 | Outpatient (CLI) | payer BC, SELFPAY ==
--- NOTE | 2025-04-14 | DI.MAMMO_ITS ---
Exam(s) MAMMO SCREENING EXAM: MAMMO SCREENING CLINICAL HISTORY: Screening, Z12.31 TECHNIQUE: Bilateral full field digital CC and MLO mammographic images were obtained with 3D tomosynthesis and utilizing computer aided detection (CAD). COMPARISON: Comparison is made with prior examinations. FINDINGS: Masses/Architectural Distortion: There is a 6 mm well-circumscribed nodule in the retroareolar region of the right breast which has shown slight interval increase in size compared to the prior examination. There are no areas of architectural distortion present. Microcalcifications: No suspicious pleomorphic-type are seen. Skin Thickening/Nipple Retraction: None. IMPRESSION: 1. Interval increase in size of a retroareolar nodule in the right breast. 2. Spot compression views requested for further evaluation. Ultrasound may be indicated at that time. BI-RADS Category 0 - Incomplete: Need additional imaging evaluation Breast Density - Category B - There are scattered areas of fibroglandular density. Breast density Category C or D implies that the patient has dense breast tissue. Dense breast tissue can make it harder to find cancer on a mammogram. Dense breast tissue is also associated with an increased risk of breast cancer. This information about the result of the mammogram report was provided to the patient to raise their awareness. Use this report when you speak with the patient about their risks for breast cancer, which includes their family history. At that time, you may recommend additional screening tests (Ultrasound or MRI) as these tests may add significant information. A negative radiographic report should not delay biopsy if a dominant or clinically suspicious mass is present. Up to ten percent of cancers are not identified on mammography. A negative report may reinforce clinical impression. Adenosis and dense breasts may obscure an underlying neoplasm. False positive reports average 6 to 10%. Patient will receive a letter notifying them of these results.
--- NOTE | 2025-04-14 15:36 | DI.RAD_ITS ---
Exam(s) XR HIP PELVIS ADULT BL EXAM: XR HIP PELVIS ADULT BL CLINICAL HISTORY: BILAT HIP PAIN, M25.551,M25.552. TECHNIQUE: 2D digital imaging was performed. COMPARISON: No exams were available for comparison FINDINGS: 3 views No evidence of pelvic nor hip fracture. There is no prominent hip joint space narrowing nor osteophytes., there is slight overhanging of the acetabulum bilaterally which may indicate an element of femoroacetabular impingement/pincer type. Benign appearing sclerotic density is noted in the right femoral head- neck junction which is probably benign bone island. Sacroiliac joints appear unremarkable. 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
== END 2025-04-14 02:49 ==
PROVIDERS: PCP Physician Assistant Medical; Visit Provider Physician Assistant Medical
DX: M25.551 Pain in right hip (principal); M25.552 Pain in left hip
CPT/HCPCS: 73521; 77063; 77067

== ENCOUNTER 2025-04-18 00:22 | Outpatient (CLI) | payer BC, SELFPAY ==
--- NOTE | 2025-04-18 | DI.MAMMO_ITS ---
Exam(s) MG MAMMO SCREEN CALL BACK UNI US BREAST RT COMPLETE EXAM: MG MAMMO SCREEN CALL BACK UNI-RIGHT AND COMPLETE RIGHT BREAST ULTRASOUND CLINICAL HISTORY: F/U MAMMO, R92.8,INTERVAL INCREASE IN SIZE OF RETROAREOLAR NODULAR RT. TECHNIQUE: Unilateral RIGHT BREAST spot mammographic images obtained with 3D tomosynthesisand utilizing computer aided detection (CAD). . Complete RIGHT breast Ultrasound was also performed, including all 4 quadrants, the retroareolar region, and the ipsilateral axilla. COMPARISON: Prior mammograms were reviewed. This additional imaging was performed due to findings described on the recent screening mammogram of 04/14/2025. This patient has had prior bilateral reduction surgery over 5 years ago. FINDINGS: DIAGNOSTIC MAMMOGRAM: Additional mammographic views performed todaydoes not dissipate this small nodule described in the anterior aspect of the breast on recent screening mammogram. We proceeded with ultrasound COMPLETE RIGHT BREAST ULTRASOUND: Ultrasound performed today reveals a few small benign microcysts at the 8 o'clock position which most probably do not correspond to the nodule. There are no dilated central ducts and no evidence of obvious papilloma on ultrasound. There are no focal ultrasound findings at the 12 1 o'clock positions nor elsewhere in all 4 quadrants of the breast.. Scanning of the ipsilateral axilla reveals no significant adenopathy. IMPRESSION: 1. Benign microcysts at the 8 o'clock position but no focal ultrasound findings to correspond to the nodule located anteriorly on the recent screening mammogram. This implies that it may be a benign intramammary lymph node. Another possibility is that it may represent an early developing benign oil cyst in a patient who has had prior reduction surgery. However, this is less likely as we would most probably see this on ultrasound. Appropriate follow-up as discussed by myself with the patient today is repeat right breast imaging in 6 months, this to include repeat right breast mammogram and ultrasound. The patient was informed of these findings and recommendations by myself prior to leaving the department today. BI-RADS Category 3 - 6 month - Probably Benign Finding: Recommend follow-up mammography in 6 months Breast Density - Category B - There are scattered areas of fibroglandular density. Breast density Category C or D implies that the patient has dense breast tissue. Dense breast tissue can make it harder to find cancer on a mammogram. Dense breast tissue is also associated with an increased risk of breast cancer. This information about the result of the mammogram report was provided to the patient to raise their awareness. Use this report when you speak with the patient about their risks for breast cancer, which includes their family history. At that time, you may recommend additional screening tests (Ultrasound or MRI) as these tests may add significant information. A negative radiographic report should not delay biopsy if a dominant or clinically suspicious mass is present. Up to ten percent of cancers are not identified on mammography. A negative report may reinforce clinical impression. Adenosis and dense breasts may obscure an underlying neoplasm. False positive reports average 6 to 10%. Patient will receive a letter notifying them of these results.
== END 2025-04-18 00:42 ==
LOC: DI 00:23
PROVIDERS: PCP Physician Assistant Medical; Visit Provider Physician Assistant Medical
DX: Z12.31 Encounter for screening mammogram for malignant neoplasm of breast (principal); R92.323 Mammographic fibroglandular density, bilateral breasts
CPT/HCPCS: 76642; 77063; 77067